=== PATIENT | male | born 1970 | race American Indian/Alaskan Native ===

== ENCOUNTER 2024-06-17 14:17 | Emergency (ER) | payer MEDICAID ==
[2024-06-17] VITALS (11 sets, daily range): BP systolic 97–127; BP diastolic 38–78; PULSE 97–124; RESP 15–35; TEMP 97.9–99
[2024-06-17] MEDS: normal saline 1000ml 1,000 ML IV ONE (14:41)
--- NOTE | 2024-06-17 14:41 | NUR ---
Seizure pads placed.
[2024-06-17 15:06] LABS: HEMOGLOBIN 7.2 g/dl (14.0-17.9); LYMPHOCYTES # (AUTO) 0.3 X10'3 (1.1-4.8); NEUTROPHILS # (AUTO) 0.6 X10'3 (1.8-7.7); RED CELL DISTRIBUTION WIDTH 20.4 % (11.5-14.5)
[2024-06-17 15:08] LABS: BASOPHILS % (AUTO) 0.5 % (0-1); EOSINOPHILS % (AUTO) 0.1 % (0-6); LYMPHOCYTES % (AUTO) 32.8 % (21-51); MEAN CORPUSCULAR HEMOGLOBIN 34.1 PG (27.0-31.0); MEAN CORPUSCULAR HGB CONC 34.1 g/dL (33.0-36.5); MEAN CORPUSCULAR VOLUME 100.1 FL (78-98); MEAN PLATELET VOLUME 8.9 FL (7.4-10.4); MONOCYTES % (AUTO) 1.5 % (2-12); NEUTROPHILS % (AUTO) 65.1 % (42-75); RED BLOOD COUNT 2.12 X10'6 (4.70-6.10)
[2024-06-17 15:14] LABS: APTT 30 SECONDS (22-32); INR 1.1 INR; PROTHROMBIN TIME 12.2 SECONDS (9.0-12.0)
[2024-06-17 15:18] LABS: ALANINE AMINOTRANSFERASE 26 U/L (12-78); ALBUMIN 1.5 G/DL (3.4-5.0); ALBUMIN/GLOBULIN RATIO 0.4 (1.1-1.5); ALKALINE PHOSPHATASE 37 IU/L (46-116); ANION GAP 13 (8-16); ASPARTATE AMINO TRANSFERASE 134 U/L (10-37); BILIRUBIN,TOTAL 2.8 MG/DL (0.1-1.0); BLOOD UREA NITROGEN 51 MG/DL (7-18); BUN/CREATININE RATIO 28.2 (10.0-20.0); CALCIUM 8.1 MG/DL (8.5-10.1); CHLORIDE 92 MMOL/L (99-107); CREATININE 1.81 MG/DL (0.60-1.10); HEMATOCRIT 21.2 % (42.0-52.0); MAGNESIUM 1.6 MG/DL (1.5-2.4); PLATELET COUNT 31 X10'3 (140-440); POTASSIUM 4.5 MMOL/L (3.5-5.1); SODIUM 124 MMOL/L (135-145); TOTAL CARBON DIOXIDE 18.9 MMOL/L (24-32); TOTAL PROTEIN 5.5 G/DL (6.4-8.2); WHITE BLOOD COUNT 0.9 X10'3 (4.5-11.0); eGFR 39 ML/MIN
[2024-06-17 15:20] LABS: GLUCOSE 422 MG/DL (70-104)
[2024-06-17 15:28] LABS: BILIRUBIN,URINE MODERATE (Neg); CLARITY,URINE SLIGHTLY CLOUDY (Clear); COLOR,URINE YELLOW (Yellow); GLUCOSE, URINE 500 mg/dl (Neg); KETONES,URINE TRACE mg/dl (Neg); LEUKOCYTE ESTERASE ,URINE NEGATIVE (Neg); NITRITES, URINE NEGATIVE (Neg); OCCULT BLOOD,URINE TRACE-INTACT (Neg); PROTEIN,URINE TRACE mg/dl (Neg); UROBILINOGEN,URINE >=8.0 E.U/dL (0.2-1.0)
[2024-06-17 15:33] LABS: UA COLLECTION TYPE FOLEY CATH
[2024-06-17 15:48] LABS: NUCLEATED RED BLOOD CELLS 3 /100WBC (0-0); TOTAL CELLS COUNTED 100
[2024-06-17 15:49] LABS: ANISOCYTOSIS 3+; PLATELET ESTIMATE DECREASED; POLYCHROMASIA FEW
[2024-06-17 15:50] LABS: ELLIPTOCYTES FEW
[2024-06-17 15:54] LABS: OCCULT BLOOD STOOL NEGATIVE (Neg)
[2024-06-17] MEDS: insulin regular, human 10 units/0.1 ml syringe IV ONE ×2 (15:54→17:36)
[2024-06-17 16:08] LABS: BACTERIA,URINE 1+ /HPF (Neg); RBC,URINE 0-2 /HPF (0-2); SQUAMOUS EPITHELIAL CELL,UR NONE SEEN /LPF (FEW); WBC,URINE 0-4 /HPF (0-4)
--- NOTE | 2024-06-17 16:42 | NUR ---
called [facility] for possible transfer, per dr. figueredo, transfer center asked to speak with doctor, handed call off, awaiting further instruction
--- NOTE | 2024-06-17 16:56 | NUR ---
spoke with [facility] for possible transer, going to fax info over, will call back
--- NOTE | 2024-06-17 17:25 | NUR ---
faxed recorded at 1700
--- NOTE | 2024-06-17 17:58 | NUR ---
[facility] DECLINED TO ACCEPT
--- NOTE | 2024-06-17 18:12 | NUR ---
WAITING FOR [facility] TO CALL BACK
--- NOTE | 2024-06-17 18:21 | NUR ---
Dinner tray provided.
--- NOTE | 2024-06-17 18:30 | NUR ---
VSS @ 15 MIN JACKIE FOR 1ST BAG OF RBC TRANSFUSION. RATE INCREASED FROM 125ML/HR TO 150ML/HR
--- NOTE | 2024-06-17 19:05 | NUR ---
VSS, NO S/S OF ACUTE DISTRESS. RBC TRANSFUSION RATE INCREASED [id number]/HR TO 175ML/HR
--- NOTE | 2024-06-17 19:30 | NUR ---
FS[facility] 347 1 HR POST DINNER
--- NOTE | 2024-06-17 19:40 | NUR ---
PT PLACED ON BED BARRETT FOR BM. TRANSFER LINENS UNDERNEATH HIM REMOVED.
--- NOTE | 2024-06-17 19:45 | NUR ---
VSS, NO S/S OF ACUTE DISTRESS. RBC TRANSFUSION RATE INCREASED FROM 175ML/HR TO 200ML/HR
--- NOTE | 2024-06-17 20:56 | NUR ---
CALL FROM LAB FOR CRITICALLY HIGH REPEAT TROPONIN OF [phone]. THIS IS DOWN FROM HIS INITIAL TROP OF 62,[phone]. DR MEYERS AWARE. DR VIEIRA GAVE VERBAL REQUEST FOR ME TO CALL LAB TO SEE WHAT PROTICOL IS FOR TIMING OF POST TRANSFUSION REPEAT CBC, AND THEN ORDER ACCORDINGLY.
--- NOTE | 2024-06-17 21:05 | NUR ---
2ND BAG OF RBCs STARTED BY NAI ETIENNE WHILE I WAS ON BREAK. SHE INFORMED ME THAT DR MEYERS WOULD LIKE THE SECOND BAG TO GO IN OVER AN HOUR. RATE INCREASED FROM 150ML/HR TO 275ML/HR.
--- NOTE | 2024-06-17 21:10 | NUR ---
PT BECAME AGITATED WHILE I WAS AT BEDSIDE AND ASKED ME IF I "COULD TAKE ALL THIS SHIT OFF HIS ARMS NOW". I EXPLAINED TO HIM THAT HE IS VERY SICK AND THAT WE NEED ALL OF THE MONITORING EQUIPMENT ATTACHED TO HIM. I ALSO ATTEMPTED TO EXPLAIN THAT HE CURRENTLY NEEDS ALL THREE OF HIS IVs BECAUSE OF HIS BLOOD TRANSFUSION AND POTENTIAL NEED FOR MORE HEPARIN. I ATTEMPTED TO BARGAIN WITH HIM AND SAID THAT IF HIS REPEAT LABS AFTER HIS 2ND UNIT OF RBCs ARE MORE STABLE THEN WE CAN AT LEAST REMOVE ONE OF HIS THREE IVs. AT FIRST HE SHOOK HIS HEAD IF HE UNDERSTOOD WHAT I WAS TRYING TO TELL HIM. THEN SUDDENLY HE STARTING CURSING AND YELLING "YOU DUMB WHITES BITCHES DONT KNOW SHIT, FUCKING WHITE BITCHES NEVER KNOW WHAT THE FUCK THEY ARE DOING". I DID NOT GIVE HIM A RESPONSE AND WALKED OUT OF THE ROOM. THIS SUDDEN OUTBURST AND PROFANITY/RACIST COMMENTS COINCIDES WITH SIMILAR OUTBURTS ON DAY SHIFT THAT I WAS INFORMED OF DURING SHIFT CHANGE REPORT.
--- NOTE | 2024-06-17 21:28 | NUR ---
CALL RECIEVED FROM XIMENA AT [facility]. PT HAS BEEN ACCEPTED AT THIS TIME, BUT THEY DO NOT HAVE AN OFFICIAL BED ASSIGNMENT FOR HIM YET. I SPENT APPROX 10 MIN GIVING XIMENA REPORT ON PT.
--- NOTE | 2024-06-17 23:52 | NUR ---
NOTICED POSSIBLE MONITOR CHANGES ON TELE STRIP, EKG ORDERED BUT PATIENT REFUSED REPEAT EKG. SUHAS MEYERS NOTIFIED AND OKAY'D
[2024-06-18] MEDS ORDERED: insulin regular, human 10 units/0.1 ml syringe IV ONE (00:05)
[2024-06-18] MEDS ORDERED: acetaminophen 325mg tablet PO ONE ×2 (00:05→00:25)
[2024-06-18] MEDS ORDERED: cefepime 2g/NS 100ml ADVANTAGE 100 ML IV SCH (00:10)
[2024-06-18] MEDS ORDERED: vancomycin/NS 1 GM ADD-VANTAGE 250 ML X 1 DOSE IV ONE (00:15)
[2024-06-18] MEDS ORDERED: VANCOMYCIN 1,500MG in normal saline IV soln 300 ML IV ONE (00:25)
--- NOTE | 2024-06-18 00:25 | NUR ---
Mac yen in ED - 06/18/24 at 0326 by CHALL[facility] HERE TO TRANSPORT PT TO [facility], REPORT GIVEN TO [facility].
--- NOTE | 2024-06-18 00:31 | NUR ---
DOCTOR MIRA CAME TO ME TO LET ME KNOW THAT PT HAS TEMP OF 100.7F AND IS TACHYCARDIC, ALSO HAS INCREASED FSBG. TYLENOL, BLOOD CULTURES, INSULIN, AND ANTIBIOTICS WERE ORDERED FOR PT. WHEN MYSELF AND ANOTHER NURSE BROUGHT MEDICATIONS TO BEDSIDE AND ATTEMPTED TO PUT HIS BP CUFF BACK ON HE BECAME VERBALLY ABUSIVE, CURSING AND USING RACIAL SLURS AT US. I TRIED TO EXPLAIN TO HIM THAT HE HAS A FEVER AND HE IS VERY SICK WITH MULTIPLE ORGANS FAILING AT THIS TIME HE SAID HE DOES NOT CARE, NOT TO TOUCH HIM, AND "YOU FUCKING DUMB WHITE BITCHES NEED TO GET THE FUCK OUT OF MY FACE AND WALK THE FUCK OUT OF HERE". I REITERATED THAT HIS BODY IS SERIOUSLY SHUTTING DOWN AND BY REFUSING THESE INTERVENTIONS HE REALLY COULD , AND HE RESPONDED "I ALREADY TOLD YOU TO GET THE FUCK OUT OF MY FACE YOU STUPID WHITE BITCH". TRANSPORT FOR HIM TO [facility] IS EXPECTED ANY MINUTE NOW.
--- NOTE | 2024-06-18 00:35 | NUR ---
[facility] HERE TO TRANSFER PT TO [facility]. REPORT GIVEN TO FL[facility] RN [facility].
[2024-06-18 00:46] LABS: BASOPHILS % (AUTO) 0.6 % (0-1); EOSINOPHILS % (AUTO) 0.2 % (0-6); HEMATOCRIT 33.6 % (42.0-52.0); HEMOGLOBIN 11.4 g/dl (14.0-17.9); LYMPHOCYTES # (AUTO) 0.3 X10'3 (1.1-4.8); MEAN CORPUSCULAR HEMOGLOBIN 32.1 PG (27.0-31.0); MEAN CORPUSCULAR HGB CONC 33.8 g/dL (33.0-36.5); MEAN PLATELET VOLUME 9.4 FL (7.4-10.4); NEUTROPHILS # (AUTO) 0.5 X10'3 (1.8-7.7); NEUTROPHILS % (AUTO) 59.2 % (42-75); RED BLOOD COUNT 3.54 X10'6 (4.70-6.10); RED CELL DISTRIBUTION WIDTH 20.7 % (11.5-14.5); WHITE BLOOD COUNT 0.8 X10'3 (4.5-11.0)
[2024-06-18 00:47] LABS: PLATELET COUNT 25 X10'3 (140-440)
--- NOTE | 2024-06-18 00:52 | NUR ---
PT HAS BEEN TRANSFERED TO [facility] AND HAS LEFT OUR FACILITY
--- NOTE | 2024-06-18 00:55 | NUR ---
REPORT CALLED TO [facility] 9 ICU LOWELL WILKINSON. PT GOING TO ROOM/BED 12. #[phone] I ALSO PROVIDED OR DIRECT DEPARTMENT NUMBER IN THE EVENT SHE NEEDS TO CALL BACK TO ASK QUESTIONS.
[2024-06-18 01:21] LABS: URINE AMPHETAMINE SCREEN NEGATIVE (Neg); URINE BARBITUATE SCREEN NEGATIVE (Neg); URINE BENZODIAZEPINES SCREEN NEGATIVE (Neg); URINE CANNABINOID SCREEN NEGATIVE (Neg); URINE COCAINE SCREEN NEGATIVE (Neg); URINE METHADONE SCREEN NEGATIVE (Neg); URINE OPIATE SCREEN NEGATIVE (Neg); URINE PHENCYCLIDINE SCREEN NEGATIVE (Neg)
[2024-06-18 03:02] LABS: NUCLEATED RED BLOOD CELLS 5 /100WBC (0-0); TOTAL CELLS COUNTED 100
[2024-06-18 03:03] LABS: ANISOCYTOSIS 3+; PLATELET ESTIMATE DECREASED
[2024-06-18 03:07] LABS: ELLIPTOCYTES FEW; POLYCHROMASIA 1+
[2024-06-18 03:08] LABS: BURR CELLS 1+; SMUDGE CELLS 1+
[2024-06-18 03:29] VITALS: PULSE 122; RESP 22; TEMP 100.7; O2SAT 96
== END 2024-06-18 00:52 | disposition short-term general hospital (02) ==
LOC: ER 14:18
DX: D61.818 Other pancytopenia (principal); I24.9 Acute ischemic heart disease, unspecified; D70.9 Neutropenia, unspecified; R50.81 Fever presenting with conditions classified elsewhere; G40.909 Epilepsy, unspecified, not intractable, without status epilepticus; R73.9 Hyperglycemia, unspecified; R94.31 Abnormal electrocardiogram [ECG] [EKG]
CPT/HCPCS: 36415; 36430; 71045; 80053; 80305; 81001; 82272; 82800; 82948; 83735; 84100; 84484; 85007; 85025; 85610; 85730; 86885; 86900; 86901; 86920; 93005; 96361; 96374; 96376; 99291; 99292; J1815; J7030; P9016; A6449

== ENCOUNTER 2025-06-12 23:20 | Inpatient (IN) | payer MEDICAID ==
[~2025-06-12] VITALS: Ht 170.2 cm; Wt 69.8 kg
--- NOTE | 2025-06-13 01:48 | Physician Documentation ---
History of Present Illness ~ Chief Complaint: Abscess Stated Complaint: SEE CHIEF COMPLAINT Time Seen by MD: 01:48 Mode of Arrival: Air Transport HPI Patient presents to the emergency room sent from [facility] for perirectal abscess. 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 That has symptoms has been gradually worsening for the past month. No fevers. CT scan at sending facility showed perirectal abscess. Zosyn initiated Tetanus Within 5 Years: Yes Medication Reconciliation Allergies: Coded Allergies: No Known Allergies (Unverified , 06/12/25) Review of Systems ROS All review of systems negative except as per HPI Physical Exam Vital Signs: Temperature: 97.6, Source: Oral, Heart Rate: 77, Respiratory Rate: 16, BP: 121/77, Pulse Oximetry: 99, Weight: 69.800 Oxygen Flow Rate: 0 General Appearance General: Patient is sleeping, easily arousable in no acute distress Head: Normocephalic and atraumatic. Eyes: Conjunctival normal. EOMI. PERRL. ENT: Mucous membranes moist. Neck: Supple, trachea is midline. Chest: Clear to auscultation bilaterally without rales, rhonchi, or wheezes. There is no accessory muscle use or retractions. Cardiac: RRR without murmurs, gallops, or rubs. Abd: Soft, nondistended, nontender, with normoactive bowel sounds. No guarding, rebound, or rigidity. : Deferred Progress Results/Orders Results/Orders Vital Signs 06/12/25 06/12/25 06/12/25 06/13/25 23:22 23:27 23:30 01:15 Temp 97.6 Pulse 80 83 77 Resp 16 16 16 B/P (MAP) 113/74 122/75 (91) 121/77 (92) Pulse Ox 100 100 99 O2 Flow Rate 0 0 Medical Decision Making Findings Patient presents to the emergency room with diagnosis sent from [facility] for perirectal abscess. Zosyn initiated. Surgery to consulted Differential Dx:Considerations: Include: Abscess, Cellulitis, Erysipelas, Felon, Hidrademitis suppurativa Departure Admitted to Inpatient Unit: yes, to hospitalist Impression: Primary Impression: Perirectal abscess Condition: Guarded Referrals: NO PRIMARY CARE PROVIDER (PCP) Critical Care Note Total Time (mins): 35 Critical Care Note The very real possibility of a deterioration of this patient's condition required the highest level of my preparedness for sudden, emergent intervention. I provided critical care services, which included medication orders, frequent reevaluations of the patient's condition and response to treatment, ordering and reviewing test results, and discussing the case with various consultants. Excludes time spent performing separately billable procedures. The critical care time associated with the care of the patient was 35 minutes not counting procedures Signature Scribe Signature: No scribe Attestation: The note accurately reflects work and decisions made by me.Kelvin Arias MD 06/13/25 01:55 KELVIN ARIAS MD Jun 13, 2025 01:48
[2025-06-13] MEDS ORDERED: magnesium sulf-water 2g/50mL 50 ML IV PRN (02:25)
[2025-06-13] MEDS ORDERED: magnesium hydroxide 30ml (MOM) UD suspension PO PRN (02:25)
[2025-06-13] MEDS ORDERED: HYDROcodone/acetaminophen 5mg/325mg tablet PO PRN (02:25)
[2025-06-13] MEDS ORDERED: mag hydrox/Alum hydrox/simeth 30ml oral suspension PO PRN (02:25)
[2025-06-13] MEDS ORDERED: potassium Cl 20 mEq SR tablet PO PRN ×2 (02:25)
[2025-06-13] MEDS ORDERED: HYDROcodone/acetaminophen 10/325mg tab PO PRN (02:25)
[2025-06-13] MEDS ORDERED: HYDROmorphone inj. 0.5 MG/0.5 ML DISP.SYRIN IV PRN (02:25)
[2025-06-13] MEDS ORDERED: magnesium sulf-water 4G/100mL 100 ML IV PRN (02:25)
[2025-06-13] MEDS ORDERED: potassium Cl 40MEQ/1/2NS 520ml 520 ML IV PRN (02:25)
[2025-06-13] MEDS ORDERED: HYDROmorphone/PF 0.2 MG/ML SYRINGE IV PRN (02:25)
[2025-06-13] MEDS ORDERED: ondansetron/PF 4mg/2ml inj IV PRN (02:25)
--- NOTE | 2025-06-13 03:53 | HISTORY AND PHYSICAL-Residence ---
History & Physical Providers to CC Resident Creating Document: STEPHANIE ALMAZAN, RES ~ History of Present Illness Reason for Admit\Complaint: Abscess History of Present Illness A 55 years old male with a significant past medical history of AML, chronic kidney disease, chronic anemia, pancytopenia, and seizures was transferred from [facility] for the management of perirectal abscess. 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 Patient mentioned he has tender area between his scrotum and anus for months.The symptoms have been gradually worsening for the past month. CT scan at sending facility showed perirectal abscess of 40 X 20 cm. Zosyn initiated in the ED. the patient denies fever chills dysuria and shortness of breath. Allergies: Coded Allergies: No Known Allergies (Unverified , 06/12/25) Past Medical History Past Medical History AML CKD Chronic anemia Pancytopenia Type 2 diabetes mellitus Hypertension seizures History of Roz gangrene Inguinal hernia Past Surgical History Surgical History Comment Perineal debridement for Roz gangrene -November 2024 Past Social History Smoking: Non-Smoker Alcohol Use: None Drug Use: Marijuana Lives with: Mother Lives In: Home Occupation: disabled ROS ROS Constitutional: No fever, dizziness, weakness. no change in appetite/weight HEENT: No blurring of the vision, No sore throat, epistaxis, tinnitus Cardiovascular: No chest pain/discomfort, palpitations, syncope. No pedal edema Respiratory: No sob, cough,, hemoptysis Gastrointestinal: No abdominal pain, nausea, vomiting. No diarrhea, constipation, melena. Genitourinary: No frquency, urgency, incontinence, nocturia. No dysuria, hematuria Musculoskeletal: No arthralgia, myalgia Endocrine: No fatigue, polydipsia, polyuria. No heat or cold intolerance Neurologic: No headache, vertigo. No weakness, numbness or tingling of extremities Psychiatric: No hallucinations/delusions, no anhedonia, no suicidal ideation\ Hematologic: No bleeding or bruises Exam Vitals: Vital Signs Date Time Temp Pulse Resp B/P (MAP) Pulse Ox O2 Delivery O2 Flow Rate FiO2 06/13/25 01:15 77 16 121/77 (92) 99 06/12/25 23:30 0 06/12/25 23:22 97.6 General: General: Awake,Alert and oriented x4 , no acute distress. HEENT: Mild pallor , Sclera clear, Mucus Membranes moist. Neck: Supple without masses and tenderness. Resp: . Lungs clear to auscultation bilaterally, Normal breath sounds are heard Heart: Regular Rate and rhythm, normal S1 and S2 without murmur, rub or gallop. Abdomen: Soft, nondistended, nontender, with normoactive bowel sounds. No guarding, rebound, or rigidity. Extremities: No cyanosis,clubbing or edema. Skin: Warm and Dry. Diagnostic Data Last Recorded Lab Results: 06/13/25 0246 Additional Plan A 55 years old with a history of AML, hypertension, type 2 diabetes, and history of Roz gangrene he is currently evaluated for perirectal abscess Perirectal abscess SIRS negative Patient was referred from [facility] for Perirectal abccess WBC-3.13, CRP 40.6, procalcitonin 0.34 , Lactic acid 0.6 Plan- Started Zosyn-3.375 IV Q8h and IV Vancomycin pharmacy to dose Initiated wound care consult Surgery consult today for possible drainage CKD: Stage 3 BUN -29, creatinine -1.6, GFR-45 Started NS 100 mL/hour IV Follow up with CMP. Megaloblastic anemia Patient is currently on treatment for AML Her reports from the [facility] shows his Hb of 6.9, MCV-101, Hct : 20.3, RDW-16.6 Follow up with CBC and PRBC if it is less than 7 Type 2 Diabetes mellitus Follow up with blood glucose Pending med rec Pancytopenia Patient is currently on treatment for AML WBC-2.4, HB-7.2, HCT-20.7, platelet-50 Monitor CBP Hypertension Pending medication reconciliation Seizures Pending medication reconciliation Code Status: Full DVT Prophylaxis: Lines/Tubes: peripheral PT: ordered Prognosis: guarded Disposition: Patient will be admitted in [facility], and further management and plan will be discussed with Surgeon after consult Stephanie Almazan MD Internal Medicine Resident PGY-1 This note has been reviewed and signed by me. Marci Zavaleta MD Internal Medicine Resident, PGY-2 Date of Service: Jun 13, 2025 Billing Provider: FUAD MISTRY MD, SATISH, RES Jun 13, 2025 03:53 MARCI ZAVALETA, RES Jun 13, 2025 07:26
[2025-06-13] MEDS: normal saline 1000ml 1,000 ML IV SCH (04:11)
[2025-06-13 04:21] LABS: LEUKOCYTE ESTERASE ,URINE SMALL (Neg); NITRITES, URINE POSITIVE (Neg); OCCULT BLOOD,URINE SMALL (Neg)
[2025-06-13 04:23] LABS: UA COLLECTION TYPE VOIDED
[2025-06-13 04:24] LABS: MEAN PLATELET VOLUME 8.1 FL (7.4-10.4); RED CELL DISTRIBUTION WIDTH 19.0 % (11.5-14.5)
[2025-06-13 04:34] LABS: SQUAMOUS EPITHELIAL CELL,UR FEW /LPF (FEW)
[2025-06-13 04:35] LABS: WBC CLUMPS,URINE MODERATE /HPF (NEGATIVE)
[2025-06-13 04:49] LABS: PLATELET ESTIMATE DECREASED
[2025-06-13 04:50] LABS: ELLIPTOCYTES FEW
[2025-06-13 05:01] LABS: CREATININE 1.55 MG/DL (0.60-1.10); TOTAL CARBON DIOXIDE 22.0 MMOL/L (24-32); eCRCL 50 ML/MIN; eGFR 47 ML/MIN
[2025-06-13] MEDS: docusate sod 100mg capsule PO SCH (08:00)
[2025-06-13] MEDS: K and/or MAG REPLACEMENT MC SCH (08:00)
[2025-06-13] MEDS ORDERED: heparin, porcine 5000 units/ml vial SQ SCH (08:00)
[2025-06-13] MEDS ORDERED: POSA100T2 (08:33)
[2025-06-13] MEDS ORDERED: CEFP200T13 PO (08:33)
[2025-06-13] MEDS ORDERED: FLUD0.1T (08:33)
[2025-06-13] MEDS ORDERED: HYDR-3964 PO (08:33)
[2025-06-13] MEDS ORDERED: PYRI60TA PO (08:33)
[2025-06-13] MEDS ORDERED: LEVO-65 PO (08:33)
[2025-06-13] MEDS ORDERED: SULF1TAB45 PO (08:33)
[2025-06-13] MEDS ORDERED: NALO4SPR22 (08:33)
[2025-06-13] MEDS ORDERED: POTASSIUM (08:33)
[2025-06-13] MEDS ORDERED: ACYC-126 PO (08:33)
[2025-06-13] MEDS ORDERED: VENE100T (08:33)
[2025-06-13] MEDS ORDERED: LISI20TA28 PO (08:33)
[2025-06-13] MEDS ORDERED: GLIP5TAB23 PO (08:33)
[2025-06-13] MEDS ORDERED: MIDO5TAB4 PO (08:33)
[2025-06-13] MEDS ORDERED: FLUD0.1T2 PO (08:33)
[2025-06-13] MEDS ORDERED: HYDR5TAB14 PO (08:33)
[2025-06-13] MEDS ORDERED: LANS30CA56 PO (08:33)
[2025-06-13] MEDS: vancomycin/NS 1 GM ADD-VANTAGE 250 ML IV SCH (08:44)
[2025-06-13] MEDS: magnesium Cl slow-release 64mg tablet PO PRN (09:37)
[2025-06-13 10:00] VITALS: BP 95/70; PULSE 90; RESP 18; TEMP 97.5; O2SAT 100
[2025-06-13] MEDS: piperacillin/tazo 3.375gm/50ml 50 ML IV SCH (10:26)
[2025-06-13 14:32] VITALS: PULSE 76
--- NOTE | 2025-06-13 16:11 | RADIOLOGY REPORT ---
EXAM: CT CT PELVIS INDICATION: CT PELVIS, WITHOUT CONTRAST TECHNIQUE: Axial images of pelvis have been obtained along with coronal and sagittal reformatted imag es. All CT scans at this facility use dose modulation, iterative reconstruction, and/or weight based dosing when appropriate to reduce radiation dose to as low as reasonably achievable. COMPARISON: None FINDINGS: BONES: No CT evidence of an acute fracture or aggressive osseous lesion. MUSCLES: No abnormal attenuation. JOINT SPACES: No joint effusion. TENDONS/LIGAMENTS: Intact. OTHER: Normal appendix. Mild prostatomegaly. Mild circumferential bladder wall thickening with contra st within the bladder. Intravesicular air. Vascular calcifications. IMPRESSION: 1. No CT evidence of an acute fracture of the pelvis. 2. Mild prostatomegaly with mild circumferential bladder wall thickening consider correlation with ur inalysis for chronic outlet obstruction.
--- NOTE | 2025-06-13 16:49 | PROGRESS NOTE ---
Progress Note ID Providers to CC ~ Progress Note Progress Note: pt seen and examined-no fluctuance-ct negative for abscess-no need for surgical intervention-call if needed KRISTY MO MD Jun 13, 2025 16:49
[2025-06-13] MEDS ORDERED: TAMS-55 PO (17:53)
[2025-06-13 18:30] VITALS: BP 129/73; PULSE 72; RESP 17; TEMP 97.7; O2SAT 100
[2025-06-13 20:00] VITALS: RESP 18; O2SAT 98
[2025-06-13 22:00] VITALS: BP 137/74; PULSE 77; RESP 16; TEMP 98; O2SAT 100
[2025-06-14 06:00] VITALS: BP 115/60; PULSE 72; RESP 16; TEMP 98.1; O2SAT 100
[2025-06-14 06:17] LABS: MEAN PLATELET VOLUME 7.2 FL (7.4-10.4); RED CELL DISTRIBUTION WIDTH 18.6 % (11.5-14.5)
[2025-06-14 06:28] LABS: % IRON SATURATION 96 % (11-46); CREATININE 1.46 MG/DL (0.60-1.10); TOTAL CARBON DIOXIDE 24.7 MMOL/L (24-32); eCRCL 53 ML/MIN; eGFR 50 ML/MIN
[2025-06-14 06:54] LABS: ELLIPTOCYTES FEW; LYMPHOCYTES % (MANUAL) 60.0 % (21-51); MONOCYTES % (MANUAL) 1.0 % (2-12); NEUTROPHILS % (MANUAL) 39.0 % (42-75); NUCLEATED RED BLOOD CELLS 1 /100WBC (0-0); PLATELET ESTIMATE DECREASED
[2025-06-14 10:00] VITALS: BP 124/74; PULSE 79; RESP 18; TEMP 98.1; O2SAT 100
--- NOTE | 2025-06-14 12:43 | DISCHARGE SUMMARY ---
Discharge Summary Providers to CC ~ Discharge Summary Admission Diagnosis: ABSCESS Hospital Course DATE OF ADMISSION: 06/13/2025 DATE OF DISCHARGE: 06/15/2025 Discharge Diagnosis\Comment: Perirectal cellulitis BPH AML chronic anemia morbid obesity Operations\Procedures: None Consultants: Dr. MO Complications: None Condition on DC: Stable New Medications: Tamsulosin Hcl* (Flomax*) 0.4 Mg Cap.sr.24h 1 CAP PO DAILY, #30 CAP Continued Medications: Acyclovir (Acyclovir) 400 Mg Tablet 1 TAB PO BID Cefpodoxime Proxetil (Vantin) 200 Mg Tablet 1 TAB PO Fludrocortisone Acetate (Fludrocortisone Acetate) 0.1 Mg Tablet Fludrocortisone Acetate* (Florinef*) 0.1 Mg Tablet 1 TAB PO BID Glipizide (Glipizide) 5 Mg Tablet 1 TAB PO BID Hydrocodone Bit/Acetaminophen (Hydrocodon-Acetaminophen 5-325) 5 Mg-325 Mg Tablet 1 TAB PO TID PRN for pain Hydrocortisone (Hydrocortisone) 5 Mg Tablet 3 TAB PO DAILY Lansoprazole (Lansoprazole) 30 Mg Capsule. 1 CAP PO DAILY Levofloxacin (Levofloxacin) 500 Mg Tablet 1 TAB PO for infectious disease Lisinopril (Lisinopril) 20 Mg Tablet 1 TAB PO DAILY for blood pressure Midodrine HCl (Midodrine HCl) 5 Mg Tablet PO Naloxone HCl (Naloxone HCl) 4 Mg/Actuation [place] Posaconazole (Posaconazole) 100 Mg Tablet. [Potassium] () Pyridostigmine Cascade (Pyridostigmine Cascade) 60 Mg Tablet 1 TAB PO BID Sulfamethoxazole/Trimethoprim (Septra Ds Tab) 800 Mg/160 Mg Tablet 1 TAB PO BID Venetoclax (Venclexta) 100 Mg Tablet Discharge Summary: History of Present Illness A 55 years old male with a significant past medical history of AML, chronic kidney disease, chronic anemia, pancytopenia, and seizures was transferred from [facility] for the management of perirectal abscess. 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 Patient mentioned he has tender area between his scrotum and anus for months.The symptoms have been gradually worsening for the past month. CT scan at sending facility showed perirectal abscess of 40 X 20 cm. Zosyn initiated in the ED. the patient denies fever chills dysuria and shortness of breath. Hospital course patient is a pleasant 55-year-old gentleman that was admitted secondary to a questionable abscess in the perirectal area noted at [facility]. We consulted surgeon on-call. He did a CT of the pelvis no rectal absence or any flatulence was noted. Patient was continued on his antibiotics. He also was noted to have some post residual urine Avila catheter was attempted 4 times was unable to be placed. I started him on Flomax. He states he is urinating better now and refusing the Avila catheter and is being discharged home with advice for close follow up with PCP as well as urologist. Patient did improve sooner than expected. As patient did not require surgery for what thought was to be a perirectal abscess prior to him being transferred here from [facility]. *Problems/Diagnosis: (1) Pancytopenia Status: Acute (2) Perirectal abscess Status: Acute Total Time Spent on D/C: > 30 Minutes Date of Service: Jun 15, 2025 Billing Provider: KIZZY CHANDRA MD Common Visit Codes: 03730-LTE/OBS DISCH DAY >30min KIZZY CHANDRA MD Jun 14, 2025 12:43
[2025-06-14 18:00] VITALS: BP 108/59; PULSE 69; RESP 16; TEMP 97.6; O2SAT 98
[2025-06-14 22:00] VITALS: BP 90/52; PULSE 79; RESP 16; TEMP 98.6; O2SAT 100
[2025-06-15 05:51] LABS: MEAN PLATELET VOLUME 7.5 FL (7.4-10.4)
[2025-06-15 05:54] LABS: RED CELL DISTRIBUTION WIDTH 19.6 % (11.5-14.5)
[2025-06-15 06:00] VITALS: BP 122/75; PULSE 79; RESP 17; TEMP 98.2; O2SAT 100
[2025-06-15 06:10] LABS: CREATININE 1.46 MG/DL (0.60-1.10); TOTAL CARBON DIOXIDE 23.2 MMOL/L (24-32); eCRCL 53 ML/MIN; eGFR 50 ML/MIN
[2025-06-15 07:23] LABS: MEAN PLATELET VOLUME 7.1 FL (7.4-10.4); RED CELL DISTRIBUTION WIDTH 19.2 % (11.5-14.5)
[2025-06-15 07:47] LABS: BANDS% (MANUAL) 1.0 % (0-10); LYMPHOCYTES % (MANUAL) 58.0 % (21-51); MONOCYTES % (MANUAL) 1.0 % (2-12); NEUTROPHILS % (MANUAL) 40.0 % (42-75); PLATELET ESTIMATE DECREASED
[2025-06-15 10:21] VITALS: BP 135/114; PULSE 92; RESP 16; TEMP 97.4; O2SAT 99
[2025-06-16] MEDS ORDERED: VANCOMYCIN LEVEL IV ONE (07:30)
== END 2025-06-15 10:55 | disposition home or self-care (01) | DRG 254 ==
LOC: ER 23:20 → ED HOLD 06-13 02:31 → ORTHO 4S 06-13 07:55
PROVIDERS: ADMIT Internal Medicine Sleep Medicine; ATTEND Internal Medicine
DX: K61.1 Rectal abscess (principal); D61.818 Other pancytopenia; E11.22 Type 2 diabetes mellitus with diabetic chronic kidney disease; D64.9 Anemia, unspecified; E66.01 Morbid (severe) obesity due to excess calories; I12.9 Hypertensive chronic kidney disease with stage 1 through stage 4 chronic kidney disease, or unspecified chronic kidney disease; N18.9 Chronic kidney disease, unspecified; N40.0 Benign prostatic hyperplasia without lower urinary tract symptoms; Z68.24 Body mass index [BMI] 24.0-24.9, adult; Z85.6 Personal history of leukemia; Z79.84 Long term (current) use of oral hypoglycemic drugs
CPT/HCPCS: 36415; 72192; 80053; 81001; 82607; 83540; 83550; 83605; 83735; 84132; 84145; 85007; 85008; 85025; 85651; 86140; 87040; 87077; 87081; 87088; 87186; 99291; A4314; A6253; A6260; A6266; A6449; G0378; J2543; J3373; J7030